=== PATIENT | male | born 1970 | race Caucasian/White ===

== ENCOUNTER 2020-04-27 05:44 | Emergency (ER) | payer OTHER ==
[~2020-04-27] VITALS: Ht 172.7 cm; Wt 86.2 kg
[2020-04-27 05:56] VITALS: BP 135/78
[2020-04-27] MEDS ORDERED: KETOROLAC TROMETH 60MG/2ML VIAL IM ONE (08:00)
== END 2020-04-27 08:11 | disposition home or self-care (01) ==
LOC: ER 05:44 → EDBD 05:44 → ER 08:11
DX: S16.1XXA Strain of muscle, fascia and tendon at neck level, initial encounter (principal); S76.011A Strain of muscle, fascia and tendon of right hip, initial encounter; R51.9 Headache, unspecified; F17.210 Nicotine dependence, cigarettes, uncomplicated; V43.52XA Car driver injured in collision with other type car in traffic accident, initial encounter; Y93.89 Activity, other specified; Y92.488 Other paved roadways as the place of occurrence of the external cause; Y99.8 Other external cause status
CPT/HCPCS: 70450; 72125; 74176; 96372; 99285; J1885